=== PATIENT | male | born 1980 | race African-American/Black ===

== ENCOUNTER 2017-11-06 11:25 | Inpatient (IN) | payer MEDICAID, OTHER ==
[~2017-11-06] VITALS: Ht 167.6 cm; Wt 63.5 kg
[2017-11-06 13:34] LABS: BASOPHILS % 0.4 % (0.0-2.0); EOSINOPHILS % 0.1 % (0.0-5.0); HEMATOCRIT. 50.5 % (42.0-52.0); HEMOGLOBIN. 17.7 g/dL (14.0-18.0); LYMPHOCYTES % 14.1 % (20.0-50.0); MEAN CORPUSCULAR HEMOGLOBIN 33.1 pg (28.0-32.0); MEAN CORPUSCULAR VOLUME 94.3 fL (80.0-94.0); MEAN PLATELET VOLUME 7.5 fl (7.4-10.4); MONOCYTES % 8.3 % (2.0-8.0); NEUTROPHILS % 77.1 % (40.0-76.0); PLATELET 267 x1000/uL (130-400); RED BLOOD CELL COUNT 5.35 mill/uL (4.7-6.1); RED CELL DISTRIBUTION WIDTH 13.5 % (11.6-14.6)
[2017-11-06 13:40] LABS: CHLORIDE 79 mEq/L (98-107)
[2017-11-06 13:42] LABS: PROTHROMBIN TIME 10.3 sec (9.4-11.6)
[2017-11-06] MEDS ORDERED: SODIUM CHLORIDE 0.9% 1,000 ML IV ONE ×2 (14:30→14:45)
[2017-11-06] MEDS ORDERED: SODIUM CHLORIDE 0.9% 1,000 ML IV SCH (15:30)
[2017-11-06] MEDS ORDERED: MORPHINE SULFATE 4 MG/ML CPJ (NOT FOR IM USE) IV PRN (15:58)
[2017-11-06] MEDS: ONDANSETRON HCL 4MG/2ML VIAL IV PRN ×2 (16:17→23:50)
[2017-11-06 23:00] VITALS: BP 110/71
[2017-11-06] MEDS: PANTOPRAZOLE SODIUM 40 MG/VIAL IV SCH (23:49)
[2017-11-06] MEDS: SODIUM CHLORIDE 0.9% 1,000 ML IV SCH (23:51)
[2017-11-07] VITALS: BP 144/91
[2017-11-07 03:05] LABS: HEMATOCRIT 43.4 % (42.0-52.0); HEMOGLOBIN 15.3 g/dL (14.0-18.0)
[2017-11-07 04:00] VITALS: BP 136/80
[2017-11-07 08:00] VITALS: BP 106/63
[2017-11-07] MEDS: SODIUM CHLORIDE 0.9% 1,000 ML IV SCH (09:45)
[2017-11-07] MEDS: PANTOPRAZOLE SODIUM 40 MG/VIAL IV SCH (09:45)
[2017-11-07 12:00] VITALS: BP 102/62
[2017-11-07 14:44] LABS: CHLORIDE 91 mEq/L (98-107)
[2017-11-07 16:00] VITALS: BP 121/73
[2017-11-07 16:34] LABS: CLARITY URINE CLEAR (CLEAR); COLOR URINE YELLOW (YELLOW); KETONES URINE TRACE (NEGATIVE); LEUKOCYTE ESTERASE URINE NEGATIVE (NEGATIVE); NITRITE URINE NEGATIVE (NEGATIVE); OCCULT BLOOD URINE NEGATIVE (NEGATIVE); PH URINE 5.5 (4.5-8.0); PROTEIN URINE NEGATIVE (NEGATIVE); SPECIFIC GRAVITY URINE 1.019 (1.005-1.030); UROBILINOGEN URINE 0.2 E.U./dL (0.2-1.0)
[2017-11-07 16:49] LABS: *AMPHETAMINES SCREEN URINE NEGATIVE (NEGATIVE); *BARBITURATES SCREEN URINE NEGATIVE (NEGATIVE); *BENZODIAZEPINES SCREEN URINE NEGATIVE (NEGATIVE); *COCAINE SCREEN URINE NEGATIVE (NEGATIVE)
[2017-11-07 16:50] LABS: CANNABINOID URINE SCREEN PRESUMTIVE POSITIVE (NEGATIVE); METHADONE URINE SCREEN NEGATIVE (NEGATIVE); OPIATES URINE SCREEN PRESUMTIVE POSITIVE (NEGATIVE); PHENCYCLIDINE URINE SCREEN NEGATIVE (NEGATIVE)
== END 2017-11-07 17:47 | disposition home or self-care (01) | DRG 253 ==
LOC: ER 11:25 → 6WST 14:44 → EDBEDREQ 14:50 → ENRESERV 20:51 → ER 22:33
PROVIDERS: ADMIT Internal Medicine; ATTEND Internal Medicine
DX: K92.2 Gastrointestinal hemorrhage, unspecified (principal); N17.0 Acute kidney failure with tubular necrosis; K70.9 Alcoholic liver disease, unspecified; K52.9 Noninfective gastroenteritis and colitis, unspecified; E87.1 Hypo-osmolality and hyponatremia; E86.0 Dehydration; F10.10 Alcohol abuse, uncomplicated; Y90.9 Presence of alcohol in blood, level not specified; F17.210 Nicotine dependence, cigarettes, uncomplicated; K64.9 Unspecified hemorrhoids; Z71.6 Tobacco abuse counseling
CPT/HCPCS: 36415; 71045; 74176; 76700; 80048; 80053; 80305; 81003; 83690; 85014; 85018; 85025; 85610; 93005; 96360; 96361; 99285; C9113; J2270; J2405; J7030